=== PATIENT | female | born 1980 | race Caucasian/White ===

== ENCOUNTER 2020-11-24 17:19 | Inpatient (IN) | payer OTHER ==
[~2020-11-24] VITALS: Ht 157.5 cm; Wt 122.2 kg
[2020-11-24 11:40] VITALS: BP 140/84
[2020-11-24] MEDS ORDERED: ALBU18HF2 INH (17:35)
--- NOTE | 2020-11-24 17:39 | NUR ---
Dr Sauer at the bedside for MSE.
[2020-11-24] MEDS ORDERED: methylPREDNISolone SOD SUCC 125 MG/2 ML VIAL IV ONE (17:45)
[2020-11-24] MEDS ORDERED: ALBUTEROL SULFATE 2.5 MG/3 ML NEBU NEB ONE ×3 (17:45)
[2020-11-24] MEDS ORDERED: IPRATROPIUM BROMIDE 0.5 MG/2.5 ML NEBU NEB ONE ×3 (17:45)
[2020-11-24] MEDS ORDERED: methylPREDNISolone SOD SUCC 125 MG/2 ML VIAL ONE (17:52)
[2020-11-24] MEDS ORDERED: IPRATROPIUM BROMIDE 0.5 MG/2.5 ML NEBU ONE ×3 (17:57→18:13)
[2020-11-24] MEDS ORDERED: ALBUTEROL SULFATE 2.5 MG/3 ML NEBU ONE ×3 (17:57→18:13)
[2020-11-24] MEDS ORDERED: ONDANSETRON 4 MG/2 ML VIAL ONE (18:12)
[2020-11-24 18:14] LABS: HEMATOCRIT 36.3 % (31.2-41.9); MEAN CORPUSCULAR HEMOGLOBIN 27.5 uug (24.7-32.8); MEAN CORPUSCULAR VOLUME 83.7 fL (75.5-95.3); PLATELET COUNT (AUTO) 429 K/uL (179-408)
[2020-11-24] MEDS ORDERED: ONDANSETRON 4 MG/2 ML VIAL IV ONE (18:15)
[2020-11-24] MEDS: MAGNESIUM SULFATE/D5W 100 ML IV SCH ×2 (18:15→19:01)
[2020-11-24 18:20] LABS: CREATININE 0.8 mg/dL (0.6-1.3); POTASSIUM 3.6 mmol/L (3.5-5.1)
[2020-11-24] MEDS ORDERED: MAGNESIUM SULFATE/D5W 100 ML ONE ×2 (18:22→18:30)
[2020-11-24 18:26] LABS: BILIRUBIN,DIRECT 0.1 mg/dL (0.0-0.2); BILIRUBIN,TOTAL 0.2 mg/dL (0.2-1.0); TOTAL PROTEIN, SERUM 7.7 g/dL (6.4-8.2)
--- NOTE | 2020-11-24 19:03 | NUR ---
Handsoff report given to Crystal CUMMINGS.
--- NOTE | 2020-11-24 19:05 | NUR ---
RECEIVED REPORT FROM EMILIANO WHYTE. PT NOTED TO BE IN BED, RESTING, BREATHING EVEN AND UNLABORED. AROUSABLE TO VERBAL AND TACTILE STIMULI. DENIES ANY PAIN/DISCOMFORT AT THIS TIME.
[2020-11-24] MEDS ORDERED: CEFEPIME HCL 2 G in IV DEXTROSE 5% 100 ML IV ONE (19:15)
[2020-11-24] MEDS ORDERED: DOXYCYCLINE HYCLATE IV 200 MG in IV DEXTROSE 5% 250 ML IV ONE (19:15)
[2020-11-24 19:25] LABS: MAGNESIUM 2.1 mg/dL (1.8-2.4); PHOSPHOROUS 3.8 mg/dL (2.5-4.9)
[2020-11-24] MEDS ORDERED: DOXYCYCLINE HYCLATE 100 MG INJ IV ONE (19:33)
[2020-11-24] MEDS ORDERED: CEFEPIME HCL 1 G VIAL ONE (19:33)
[2020-11-24] MEDS ORDERED: IV NORMAL SALINE 1000 ML BAG IV ONE (20:30)
--- NOTE | 2020-11-24 20:45 | NUR ---
FAXED FACE SHEET, SUMMARY REPORT AND COVID RESULTS TO KNITTING MACHINE OPERATOR (EMY) IN [facility] FAX #: .
--- NOTE | 2020-11-24 21:16 | NUR ---
SPOKE WITH EMY, PT ONLY MEETS CRITERIA FOR OBSERVATION, CRITERIA SCORE OF 30 (MODERATE). CALL BACK NUMBER [phone]
--- NOTE | 2020-11-24 21:30 | NUR ---
RT AT BEDSIDE FOR ABG.
[2020-11-24 21:40] LABS: ABG BASE EXCESS -5.4 mmol/L; ABG HCO3 19.4 mmol/L; ABG PCO2 35.5 mmHg (35.0-45.0); ABG PH 7.355 (7.350-7.450); ABG SITE LEFT RADIAL; ABG TOTAL HEMOGLOBIN 11.8 G/dL (12.0-16.0); COHb 0.5 % (0.5-1.5); O2Hb 96.7 % (94.0-97.0); VENT MODE Nasal Cannula
--- NOTE | 2020-11-24 21:42 | NUR ---
CALLED [facility] FOR PANEL CALL, DR. ALEX GOODSON.
--- NOTE | 2020-11-24 22:25 | NUR ---
ASSISTED PT TO RESTROOM, STEADY GAIT, NO SOB OR LABORED BREATHING. DENIES PAIN WHILE URINATING.
--- NOTE | 2020-11-24 22:30 | NUR ---
GAVE REPORT TO EMILIANO KUMAR.
[2020-11-24] MEDS ORDERED: MAGNESIUM HYDROXIDE 30 ML LIQUID UDC PO PRN (22:45)
[2020-11-24] MEDS ORDERED: Z GUARD REMEDY PASTE 57 GM TUBE TOP PRN (22:45)
[2020-11-24] MEDS ORDERED: ALBUTEROL SULFATE 8 GM HFA.AER.AD IH PRN (22:45)
[2020-11-24] MEDS ORDERED: ONDANSETRON 4 MG/2 ML VIAL IV PRN (22:45)
[2020-11-24] MEDS ORDERED: ACETAMINOPHEN 325 MG TABLET PO PRN (22:45)
[2020-11-24 23:00] LABS: *BILIRUBIN,URIN NEGATIVE (NEGATIVE); *BLOOD, URINE 2+ (NEGATIVE); *COLOR,URINE YELLOW (YELLOW); *KETONES,URINE NEGATIVE (NEGATIVE); *UROBILINOGEN,URINE 0.2 E.U./dl (NORMAL); LEUKOCYTE ESTERASE ,URINE NEGATIVE (NEGATIVE); NITRITE, URINE POSITIVE (NEGATIVE); PH,URINE 5.5 (5.0-8.0); UGLUCOSE NEGATIVE (NEGATIVE)
[2020-11-24] MEDS ORDERED: ALBUTEROL SULFATE 2.5 MG/3 ML NEBU NEB PRN (23:00)
[2020-11-24] MEDS ORDERED: CEFTRIAXONE 1 G in IV DEXTROSE 5% 50 ML IV SCH (23:00)
--- NOTE | 2020-11-24 23:00 | NUR ---
Pt. admitted to TELE ROOM 308 , under care of Dr. JOHNSON DX: PNA Belongs List completed
[2020-11-24 23:14] LABS: *CLARITY,URINE HAZY (CLEAR)
[2020-11-24 23:15] LABS: BACTERIA,URINE FEW /HPF (NONE SEEN); SQUAMOUS EPITHELIAL CELL,UR MODERATE /HPF (NONE SEEN)
--- NOTE | 2020-11-24 23:30 | NUR ---
Admitted a 40 years old female with Dx of Asthma Exacerbation. Patient AAOx4. In no apparent distress. Denies any pain or SOB during admission. On O2 at 3LPM via NC in place. O2 sat at 98%. Sinus tachy on tele with HR of 110/min. IV site on right AC intact and patent. Routine admission care done. Plan of care initiated. Safety measure initiated and call overton within reached. Dr. Carreno into visit during admit. Continue to monitor.
[2020-11-24 23:33] LABS: *AMPHETAMINE, URINE POSITIVE (NEGATIVE); *CANNABINOID, URINE NEGATIVE (NEGATIVE); *COCCAINE, URINE NEGATIVE (NEGATIVE); *OPIATE, URINE NEGATIVE (NEGATIVE); *PHENCYCLIDINE SCREEN,URINE NEGATIVE (NEGATIVE)
[2020-11-24] MEDS ORDERED: CEFTRIAXONE 1 G VIAL ONE (23:56)
[2020-11-24] MEDS ORDERED: AZITHROMYCIN 500 MG VIAL IV ONE (23:57)
[2020-11-25] MEDS ORDERED: IPRATROPIUM BROMIDE 12.9 GM INHALER INH SCH
[2020-11-25] MEDS: AZITHROMYCIN IV 500 MG in IV DEXTROSE 5% 250 ML IV SCH ×2 (00:51→23:32)
[2020-11-25] MEDS: IV 1/2NS 1000 ML 1,000 ML IV PRN ×2 (02:00→22:40)
[2020-11-25 04:00] VITALS: BP 118/74
[2020-11-25 06:00] LABS: HEMATOCRIT 33.2 % (31.2-41.9); MEAN CORPUSCULAR HEMOGLOBIN 27.9 uug (24.7-32.8); MEAN CORPUSCULAR VOLUME 84.2 fL (75.5-95.3); PLATELET COUNT (AUTO) 395 K/uL (179-408)
[2020-11-25 06:10] LABS: BILIRUBIN,TOTAL 0.2 mg/dL (0.2-1.0); CREATININE 0.8 mg/dL (0.6-1.3); MAGNESIUM 2.2 mg/dL (1.8-2.4); PHOSPHOROUS 1.8 mg/dL (2.5-4.9); POTASSIUM 4.3 mmol/L (3.5-5.1)
--- NOTE | 2020-11-25 06:35 | NUR ---
Patient slept well after admission. Denies any pain or SOB. On O2 at 3LPM via NC in place. O2 sat at 99%. Sinus tachy on tele with HR of 105/min. IV site on right AC intact and patent. IVF infusing. Safety measure maintained and call overton within reached.
--- NOTE | 2020-11-25 06:36 | NUR ---
No adverse effect noted from IV antibiotics.
--- NOTE | 2020-11-25 08:00 | NUR ---
AWAKE ALERT AND ORIENTED X3 DENIES PAIN OR SOB. RESTING COMFORTABLY IN BED
[2020-11-25] MEDS: methylPREDNISolone SOD SUCC 40 MG/ML VIAL IV SCH ×2 (09:13→20:23)
[2020-11-25 12:00] VITALS: BP 134/88
--- NOTE | 2020-11-25 12:00 | NUR ---
SEEN BY [facility] HOSPITALIST AND DR CHI , SEE NOTES CONTINUE PLAN OF CARE IV ANTIBIOTIC AND BREATHING TX
[2020-11-25] MEDS ORDERED: IPRATROPIUM BROMIDE 0.5 MG/2.5 ML NEBU NEB PRN (12:15)
[2020-11-25] MEDS ORDERED: LORA10TA7 PO (15:22)
[2020-11-25] MEDS ORDERED: FLUT1DIS28 IH (15:23)
[2020-11-25] MEDS ORDERED: NAPR-1009 PO (15:41)
[2020-11-25] MEDS ORDERED: LORATADINE 10 MG TABLET PO PRN (15:45)
[2020-11-25] MEDS ORDERED: ALBUTEROL SULFATE 8 GM HFA.AER.AD INH SCH (15:45)
[2020-11-25] MEDS ORDERED: NEUTRA PHOS PACKET PO ONE (16:00)
--- NOTE | 2020-11-25 16:05 | NUR ---
PATIENT C/O SOB, ON AND OFF PRODUCTIVE COUGH. WILL INITIATE BREATHING ORDERED
--- NOTE | 2020-11-25 16:25 | NUR ---
Unknown contraband confiscated laborer cook house and chef kitchen manager notified. Nursing supervisor industrial arts education called police and notified but unable to be picked up and suggest to dispose properly. Unknown contraband inside 10cc and insulin syringe emptied on pharmaceutical container inside the med room with nursing supervisor industrial arts education.
[2020-11-25] MEDS ORDERED: FLUTICASONE/SALMETEROL 250/50 INHALER IH SCH (17:00)
--- NOTE | 2020-11-25 19:30 | NUR ---
Received patient lying in bed. Asleep, but arouse to verbal stimuli. AOx4. In no apparent distress. Denies any pain or SOB. O2 sat at 99% on RA. Midline on right upper arm intact and patent. IVF infusing. Needs assessed and attended to. Safety measure initiated and call overton within reached.
[2020-11-25 20:00] VITALS: BP 131/77
[2020-11-25] MEDS ORDERED: CEFTRIAXONE 2 G in IV DEXTROSE 5% 100 ML IV SCH (23:00)
[2020-11-26 04:00] VITALS: BP 124/88
--- NOTE | 2020-11-26 06:11 | NUR ---
Patient asleep most of the time. Remains AOx4. Denies any pain or SOB. O2 sat at 96% on RA. Midline on right upper arm intact and patent. IVF infusing. No adverse reaction noted from IV antibiotics. Needs attended to and met. Safety measure maintained and call overton within reached.
[2020-11-26] MEDS: methylPREDNISolone SOD SUCC 40 MG/ML VIAL IV SCH (08:27)
[2020-11-26] MEDS ORDERED: CALCIUM CARB/VITAMIN D 500MG-200UNITS TABLET PO SCH (09:00)
[2020-11-26] MEDS ORDERED: FLUTICASONE/VILANTEROL 1 EACH BLST.W.DEV INH SCH (09:00)
[2020-11-26 12:00] VITALS: BP 144/96
[2020-11-26] MEDS ORDERED: PRED20TA PO (13:13)
[2020-11-26] MEDS ORDERED: FLUT1BLS INH (13:13)
[2020-11-26] MEDS ORDERED: BENZ-13 PO (13:22)
--- NOTE | 2020-11-26 15:08 | NUR ---
Clinical SW Note SW met with 40-year-old female patient referred for SW consult for homelessness. Pt presents as alert and oriented x4. Pt presents with euthymic mood. Pt reports feeling tired and kept her eyes closed most of assessment. Pt spoke with mumbled and rapid speech. Pt appeared disheveled and unkempt. Pt reports she and her roommate were evicted and moved out of their home on Tuesday. Pt states she has a plane ticket to [place] scheduled for tomorrow. Pt states she has transportation to get to the airport. Pt explains she will visit her parents and son in [place] for a week before returning to [place]. Pt explains her stuff is in storage and she and her roommate will "hotel hop." Pt reports she receives [employer] benefits and will apply for General Relief. Pt denies SI/HI. Pt appears to have some insight into her situation. Pt presents with impaired judgment. Pt was provided homelessness resources and reports she will review and f/u w/ resources as appropriate.
[2020-11-26 16:00] VITALS: BP 149/96
--- NOTE | 2020-11-26 18:06 | NUR ---
dc orders received noted and carried out dc midline per md orders mdc instruction and education given to the pt.pt said she will follow up with her pcp .pt left the facility via walking from the hospital in stab;le condition
== END 2020-11-26 18:08 | disposition home or self-care (01) | DRG 133 ==
LOC: ER 17:22 → TELE3 22:36 → MEDSURG3 11-25 08:52
PROVIDERS: ADMIT Internal Medicine; ATTEND Nurse Practitioner Acute Care
PROC: 05H533Z Insertion of Infusion Device into Right Subclavian Vein, Percutaneous Approach (ICD-10-PCS; principal; 2020-11-25)
PROC: B546ZZA Ultrasonography of Right Subclavian Vein, Guidance (ICD-10-PCS; principal; 2020-11-25)
DX: J96.01 Acute respiratory failure with hypoxia (principal); J45.901 Unspecified asthma with (acute) exacerbation; E66.01 Morbid (severe) obesity due to excess calories; Z68.42 Body mass index [BMI] 45.0-49.9, adult; Z59.00 Homelessness unspecified; F43.10 Post-traumatic stress disorder, unspecified; F19.90 Other psychoactive substance use, unspecified, uncomplicated; Z20.822 Contact with and (suspected) exposure to COVID-19
CPT/HCPCS: 36415; 36600; 70030-TC; 71045; 83605; 83735; 84100; 85025; 87040; 87086; 93005; 94640; A4663; G0378; J0456; J0692; J0696; J2405; J2920; J2930; J3475; J3490; J3590; J7030; J7060

== ENCOUNTER 2022-11-08 20:08 | Emergency (ER) | payer OTHER ==
[~2022-11-08] VITALS: Ht 157.5 cm; Wt 131.5 kg
[~2022-11-08 20:08] MED LIST: ALBU18HF2 INH; BENZ-13 PO; FLUT1BLS INH; FLUT1DIS28 IH; LORA10TA7 PO; NAPR-1009 PO; PRED20TA PO
[2022-11-08] MEDS ORDERED: IPRATROPIUM BROMIDE 0.5 MG/2.5 ML NEBU NEB ONE (20:15)
[2022-11-08] MEDS ORDERED: MAGNESIUM SULFATE 2 GM in IV DEXTROSE 5% 100 ML IV ONE (20:15)
[2022-11-08] MEDS ORDERED: methylPREDNISolone SOD SUCC 125 MG/2 ML VIAL IV ONE (20:15)
[2022-11-08] MEDS ORDERED: ALBUTEROL SULFATE 2.5 MG/3 ML NEBU NEB ONE (20:15)
[2022-11-08] MEDS ORDERED: methylPREDNISolone SOD SUCC 125 MG/2 ML VIAL ONE (20:59)
[2022-11-08] MEDS ORDERED: IPRATROPIUM BROMIDE 0.5 MG/2.5 ML NEBU ONE (21:02)
[2022-11-08] MEDS ORDERED: ALBUTEROL SULFATE 2.5 MG/3 ML NEBU ONE (21:02)
[2022-11-08 21:09] VITALS: O2SAT 99
[2022-11-08 21:09] LABS: CALCIUM 8.6 mg/dL (8.5-10.1); CARBON DIOXIDE 28 mmol/L (21-32); CHLORIDE 103 mmol/L (98-107); CREATININE 0.9 mg/dL (0.6-1.3); GLUCOSE 114 mg/dL (74-106); POTASSIUM 3.8 mmol/L (3.5-5.1); SODIUM SERUM 138 mmol/L (136-145); UREA NITROGEN, BLOOD 12 mg/dL (7-18)
[2022-11-08 21:12] LABS: BASOPHILS % (AUTO) 0.6 % (0.0-2.0); DIFFERENTIAL COMMENT 0; EOSINOPHILS # (AUTO) 0.6 K/uL (0.0-0.7); EOSINOPHILS % (AUTO) 7.4 % (0.0-7.0); HEMATOCRIT 32.3 % (31.2-41.9); HEMOGLOBIN 10.5 g/dL (10.9-14.3); LYMPHOCYTES # (AUTO) 1.4 K/uL (0.8-4.8); LYMPHOCYTES % (AUTO) 18.2 % (20.5-51.5); MEAN CORPUSCULAR HEMOGLOBIN 25.3 uug (24.7-32.8); MEAN CORPUSCULAR HGB CONC 33 g/dL (32.3-35.6); MEAN CORPUSCULAR VOLUME 77.8 fL (75.5-95.3); MONOCYTES # (AUTO) 0.7 K/uL (0.1-1.30); MONOCYTES % (AUTO) 8.7 % (0.0-11.0); NEUTROPHILS # (AUTO) 4.9 K/uL (1.8-8.9); NEUTROPHILS % (AUTO) 65.1 % (38.5-71.5); PLATELET COUNT (AUTO) 398 K/uL (179-408); RED BLOOD CELL COUNT(AUTO) 4.15 MIL/uL (3.63-4.92); RED CELL DISTRIBUTION WIDTH 17.2 % (12.3-17.7); WHITE BLOOD COUNT (AUTO) 7.5 K/uL (3.8-11.8)
[2022-11-08] MEDS ORDERED: MAGNESIUM SULFATE 1 GM/2 ML VIAL ONE (21:25)
[2022-11-08] MEDS ORDERED: MAGNESIUM SULFATE/D5W 100 ML ONE (21:25)
[2022-11-08] MEDS ORDERED: PRED20TA PO ×2 (22:05→23:22)
[2022-11-08] MEDS ORDERED: ALBU18HF2 INH ×2 (22:05→23:22)
[2022-11-08 22:09] VITALS: O2SAT 99
[2022-11-08 23:50] VITALS: BP 146/81; TEMP 97.7; O2SAT 97
== END 2022-11-08 23:50 | disposition home or self-care (01) ==
LOC: ER 20:09
DX: J45.901 Unspecified asthma with (acute) exacerbation (principal); Z91.013 Allergy to seafood; Z88.8 Allergy status to other drugs, medicaments and biological substances; Z79.899 Other long term (current) drug therapy; Z20.822 Contact with and (suspected) exposure to COVID-19
CPT/HCPCS: 99285; 96365; 71045; 96366; 96375; 87426; 87804 ×2; 80048; 85025; 87040 ×2; 87186; 87077; 84484; 36415; 93005; 94644; 83605; J3475 ×3; J2930; A4606; A4663; J3590